=== PATIENT | male | born 1960 | race Caucasian/White ===

== ENCOUNTER → 2017-08-13 | Outpatient (REF) | payer MEDICARE, OTHER ==
[~2017-08-13] MED LIST: /CELE20CA OR; /PANT40TA OR; ADVIL PO; AMIT25TA2 OR; CIAL5TAB OR; COZA50TA18 OR; OXYC1SOL PO; PERC5TAB8 PO; ROBA750T4 PO; SILD25TA OR; TIZA4TAB OR; TOPR100T OR; VALI5TAB PO
== END ==
LOC: M SMT 12:55
PROVIDERS: ATTEND Nurse Practitioner Women's Health
DX: N40.1 Benign prostatic hyperplasia with lower urinary tract symptoms (principal)
CPT/HCPCS: 51798; 81001; 87086; G0463

== ENCOUNTER → 2018-07-26 | Outpatient (CLI) | payer MEDICARE, BC, OTHER ==
[2018-07-26 18:52] LABS: PSA SCREENING 3.72 NG/ML (< 4.0)
== END ==
LOC: M SMT 13:33
DX: Z12.5 Encounter for screening for malignant neoplasm of prostate (principal)
CPT/HCPCS: G0103